=== PATIENT | male | born 1980 ===

== ENCOUNTER 2019-04-10 22:24 | Emergency (ER) | payer SELFPAY ==
[~2019-04-10] VITALS: Ht 172.7 cm; Wt 81.7 kg
== END 2019-04-11 01:20 | disposition home or self-care (01) ==
LOC: ER 22:24
DX: S61.411A Laceration without foreign body of right hand, initial encounter (principal); S61.511A Laceration without foreign body of right wrist, initial encounter; W26.0XXA Contact with knife, initial encounter; Z87.891 Personal history of nicotine dependence
CPT/HCPCS: 12002; 73120; 90471; 90714; 99283-25; A9270; A9270-GY

== ENCOUNTER 2019-11-23 17:23 | Emergency (ER) | payer SELFPAY ==
[~2019-11-23] VITALS: Ht 172.7 cm; Wt 81.7 kg
== END 2019-11-23 21:37 | disposition home or self-care (01) ==
LOC: ER 17:23
DX: S01.311A Laceration without foreign body of right ear, initial encounter (principal); S01.511A Laceration without foreign body of lip, initial encounter; Z87.891 Personal history of nicotine dependence; Y04.0XXA Assault by unarmed brawl or fight, initial encounter
CPT/HCPCS: 12013; 70450; 99284-25

== ENCOUNTER 2025-05-12 06:40 | Emergency (ER) | payer OTHER ==
[~2025-05-12] VITALS: Ht 175.3 cm; Wt 81.7 kg
[2025-05-12 06:48] VITALS: BP 128/92
[2025-05-12] MEDS ORDERED: CEPH500 PO (06:56)
== END 2025-05-12 07:40 | disposition home or self-care (01) ==
LOC: ER 06:40
DX: J06.9 Acute upper respiratory infection, unspecified (principal); J34.0 Abscess, furuncle and carbuncle of nose; Z87.891 Personal history of nicotine dependence
CPT/HCPCS: 99283